=== PATIENT | male | born 1965 | race Caucasian/White ===

== ENCOUNTER 2024-01-14 17:37 | Day surgery (SDC) | payer OTHER ==
[2024-01-14] MEDS: LACTATED RINGERS 1,000 ML IV ONE ×2 (00:11→00:43)
[2024-01-14 18:15] LABS: BASOPHILS # (AUTO) 0.1 10^3/uL (0.0-0.1); BASOPHILS % (AUTO) 0.4 %; EOSINOPHILS % (AUTO) 0.3 %; HGB - HEMOGLOBIN 14.7 g/dL (14.0-18.0); LYMPHOCYTES # (AUTO) 1.5 10^3/uL (1.5-3.5); LYMPHOCYTES % (AUTO) 11.5 %; MEAN CORPUSCULAR VOLUME 85.7 fL (80.0-94.0); MEAN PLATELET VOLUME 10.3 fL (7.4-11.4); MONOCYTES # (AUTO) 0.6 10^3/uL (0.0-1.0); MONOCYTES % (AUTO) 4.8 %; NEUTROPHILS # (AUTO) 11.1 10^3/uL (1.5-6.6); NEUTROPHILS % (AUTO) 82.6 %; PLT - PLATELET COUNT 262 10^3/uL (130-450); RED CELL DISTRIBUTION WIDTH 11.5 % (12.0-15.0); WHITE BLOOD COUNT 13.4 x10^3/uL (4.8-10.8)
[2024-01-14 18:43] LABS: ALBUMIN 4.4 g/dL (3.2-5.5); ALBUMIN/GLOBULIN RATIO 1.5 (1.0-2.2); ALKALINE PHOSPHATASE 51 IU/L (42-121); ALT ALANINE AMINOTRANSFERASE 11 IU/L (10-60); AST ASPARTATE AMINOTRANSFERASE 9 IU/L (10-42); BILIRUBIN,TOTAL 0.8 mg/dL (0.2-1.0); BUN - BLOOD UREA NITROGEN 9 mg/dL (6-20); CALCIUM 9.6 mg/dL (8.5-10.3); CARBON DIOXIDE - CO2 24 mmol/L (21-32); CHLORIDE 104 mmol/L (101-111); CREATININE 0.7 mg/dL (0.6-1.3); GFR - MDRD 117 (>89); GLUCOSE 118 mg/dL (74-104); POTASSIUM 3.4 mmol/L (3.5-4.5); SODIUM 137 mmol/L (135-145); TOTAL PROTEIN 7.4 g/dL (6.4-8.9)
[2024-01-14 18:47] LABS: LIPASE < 10 U/L (11-82)
[2024-01-14] MEDS ORDERED: iohexoL-300 100 ML VIAL ONE (20:11)
[2024-01-14 20:29] LABS: BILIRUBIN,URINE NEGATIVE (NEGATIVE); GLUCOSE, URINE (UA) NEGATIVE (NEGATIVE); KETONES,URINE (UA) NEGATIVE (NEGATIVE); LEUKOCYTE ESTERASE, URINE NEGATIVE (NEGATIVE); NITRITE,URINE NEGATIVE (NEGATIVE); OCCULT BLOOD,URINE TRACE-LYSE (NEGATIVE); PH,URINE 6.5 PH (5.0-7.5); PROTEIN,URINE NEGATIVE (NEGATIVE); UROBILINOGEN,URINE 0.2 (NORMAL) E.U./dL (NORMAL)
--- NOTE | 2024-01-14 20:29 | ED Physician Documentation ---
PD HPI ABD PAIN - Stated complaint Stated Complaint: ABD PX - Chief complaint Chief Complaint: Abd Pain - History obtained from History obtained from: Patient - History of Present Illness Pain level max: 7 Pain level now: 5 Quality: Aching, Pain Location: RLQ Radiation: No: Chest, , Lower back, Left flank, Left shoulder, Right flank, Right shoulder, Upper back Improved by: Laying still Worsened by: Moving, Palpation Associated symptoms: Fever (101). No: Hematemesis, Diarrhea, Constipation, Melena, Hematochezia, Dysuria - Additional information Additional information: Patient is a 58-year-old male who presents to the emergency department complaint of right lower quadrant abdominal pain that started yesterday and has continued today. Worse with movement, better with rest. Some nausea. No diarrhea or constipation. Had temp of 101 at home. Patient states that he has pain with walking and pain with going over bumps in cars. Has not eaten anything for 2 days. Review of Systems Constitutional: denies: Fever, Chills Throat: denies: Sore throat Cardiac: denies: Chest pain / pressure Respiratory: denies: Cough Skin: denies: Rash Musculoskeletal: denies: Neck pain, Back pain Neurologic: denies: Headache PD PAST MEDICAL HISTORY - Past Medical History Past Medical History: No - Past Surgical History Past Surgical History: Yes HEENT: Other - Present Medications Home Medications: Ambulatory Orders Medication Instructions Recorded Confirmed No Known Home Medications 01/14/24 01/14/24 - Allergies Allergies/Adverse Reactions: Allergies Allergy/AdvReac Type Severity Reaction Status Date / Time No Known Drug Allergies Allergy Verified 01/14/24 17:46 - Social History Does the pt smoke?: No Smoking Status: Never smoker Does the pt drink ETOH?: Yes Does the pt have substance abuse?: No PD ED PE NORMAL - Vitals Vital signs reviewed: Yes - General General: Alert and oriented X 3, No acute distress - HEENT HEENT: PERRL, Moist mucous membranes - Neck Neck: Supple, no meningeal sign - Cardiac Cardiac: RRR, Strong equal pulses - Respiratory Respiratory: No respiratory distress, Clear bilaterally - Abdomen Abdomen: Soft, Non distended, Other (TTP RLQ @ [place]. +heeltap. neg psoas and obturator.) - Back Back: No CVA TTP, No spinal TTP - Derm Derm: Warm and dry - Extremities Extremities: No edema - Neuro Neuro: Alert and oriented X 3 - Psych Psych: Normal mood, Normal affect Results - Vitals Vitals: Vital Signs - 24 hr 01/14/24 01/14/24 01/14/24 17:41 20:12 22:00 Temperature 36.0 C L Heart Rate 99 76 75 Respiratory 15 16 16 Rate Blood Pressure 125/76 129/84 H 127/78 O2 Saturation 97 95 96 Oxygen O2 Source Room air - Labs Labs: Laboratory Tests 01/14/24 01/14/24 01/14/24 17:55 17:55 18:08 WBC 13.4 H RBC 4.90 Hgb 14.7 Hct 42.0 MCV 85.7 MCH 30.0 MCHC 35.0 RDW 11.5 L Plt Count 262 MPV 10.3 Neut # (Auto) 11.1 H Lymph # (Auto) 1.5 [place] # (Auto) 0.6 Eos # (Auto) 0.0 Baso # (Auto) 0.1 Absolute Nucleated RBC 0.00 Nucleated RBC % 0.0 Sodium 137 Potassium 3.4 L Chloride 104 Carbon Dioxide 24 Anion Gap 9.0 BUN 9 Creatinine 0.7 Estimated GFR (MDRD) 117 Glucose 118 H Calcium 9.6 Total Bilirubin 0.8 AST 9 L ALT 11 Alkaline Phosphatase 51 Total Protein 7.4 Albumin 4.4 Globulin 3.0 Albumin/Globulin Ratio 1.5 Lipase < 10 L Urine Color DARK YELLOW Urine Clarity CLEAR Urine pH 6.5 Ur Specific [place] <=1.005 Urine Protein NEGATIVE Urine Glucose (UA) NEGATIVE Urine Ketones NEGATIVE Urine Occult Blood TRACE-LYSE Urine Nitrite NEGATIVE Urine Bilirubin NEGATIVE Urine Urobilinogen 0.2 (NORMAL) Ur Leukocyte Esterase NEGATIVE Ur Microscopic Review NOT INDICATED Urine Culture Comments NOT INDICATED - Rads (name of study) CT abd/pelvis Relevant Findings:: Final report received, See rad report PD Medical Decision Making - ED course Complexity details: reviewed results, re-evaluated patient, considered differential, d/w patient, d/w distributor sales consultant ED course: 58-year-old male with appendicitis clinically on exam and history, confirmed with CT scan. No perforation or abscess. Discussed the case with Dr. Cantu, general surgery on-call who will take him to the OR. Patient declines any pain medications in the emergency department. Given IV Zosyn. This document was made in part using voice recognition software. While efforts are made to proofread this document, sound alike and grammatical errors may occur. Departure - Departure Disposition: ED Transfer to [facility] Clinical Impression: Appendicitis Qualifiers: Appendicitis type: acute appendicitis Acute appendicitis type: with localized peritonitis Appendicitis gangrene presence: without gangrene Appendicitis perforation presence: without perforation Appendicitis abscess presence: without abscess Qualified Code(s): K35.30 - Acute appendicitis with localized peritonitis, without perforation or gangrene Condition: Stable Discharge Date/Time: 01/14/24 22:40
[2024-01-14 20:35] LABS: CLARITY,URINE CLEAR (CLEAR)
[2024-01-14] MEDS: iohexoL-300 100 ML VIAL IVP ONE (20:40)
[2024-01-14] MEDS: SODIUM CHLORIDE 0.9% 1,000 ML IV STA (21:20)
[2024-01-14] MEDS: PIPERACILLIN/TAZOBACTAM 3.375 GM in SODIUM CHLORIDE 0.9% MINIBAG 100 ML IV STA (21:21)
--- NOTE | 2024-01-14 21:32 | CT Report ---
PROCEDURE: Abdomen/Pelvis W INDICATIONS: RLQ abd pain CONTRAST: 100 ML OMNI 300 TECHNIQUE: After the administration of intravenous contrast, a CT scan of the abdomen and pelvis was performed. Images were recorded and evaluated at appropriate window settings. Reformats: coronal and sagittal. F or radiation dose reduction, the following was used: automated exposure control, adjustment of mA and /or kV according to patient size. COMPARISON: None. FINDINGS: Image quality: Diagnostic. Lower chest: Unremarkable. Liver: Scattered subcentimeter low-attenuation foci, with the larger lesions most suggestive of simpl e cysts. The smaller lesions are too small to definitively characterize. Gallbladder and biliary tree: Unremarkable. Spleen: No splenomegaly. Pancreas: No pancreatic ductal dilation. Adrenals: No adrenal nodule. Kidneys and ureters: No hydronephrosis. No renal cystic lesion which requires follow up. No solid mas s. Stomach, bowel and peritoneum: The appendix is markedly enlarged measuring 1.4 cm. 2 mm appendicolith is present. No perforation. No abscess. Lymph nodes: No central or retroperitoneal adenopathy. Vessels: No infrarenal aortic aneurysm. PELVIS Reproductive organs: Unremarkable. Bladder: No abnormal wall thickening, accounting for underdistention. Pelvic lymph nodes: No pelvic adenopathy by size criteria. Bones: No aggressive osseous abnormality. Other: No significant ventral or inguinal hernia. IMPRESSION: Prominently inflamed appendix with appendicolith. No evidence of perforation or abscess. The above findings were discussed with Dr. Ken Santiago on 01/14/2024 at 9:29 PM Reviewed by: Mercedez Enriquez MD on 01/14/2024 9:31 PM PDT Approved by: Mercedez Enriquez MD on 01/14/2024 9:31 PM PDT Station ID: [id number]
[2024-01-14] MEDS ORDERED: MIDAZOLAM 2 MG/2 ML VIAL ONE (21:35)
--- NOTE | 2024-01-14 21:35 | ANESTHESIA ---
Pre-Anesthesia VS, & Labs - Diagnosis Acute appendicitis - Procedure Laparoscopic appendectomy Vital Signs: Temp Pulse Resp BP Pulse Ox O2 Flow Rate 36.0 C L 76 16 129/84 H 95 01/14/24 17:41 01/14/24 20:12 01/14/24 20:12 01/14/24 20:12 01/14/24 20:12 Height: 6 ft 1 in Weight (kg): 102.058 kg Body Mass Index: 29.7 BMI Classification: Overweight - NPO >8 hours - Lab Results Current Lab Results: Laboratory Tests 01/14/24 17:55: Sodium 137, Potassium 3.4 L, Chloride 104, Carbon Dioxide 24, Anion Gap 9.0, BUN 9, Creatinine 0.7, Estimated GFR (MDRD) 117, Glucose 118 H, Calcium 9.6, Total Bilirubin 0.8, AST 9 L, ALT 11, Alkaline Phosphatase 51, Total Protein 7.4, Albumin 4.4, Globulin 3.0, Albumin/Globulin Ratio 1.5, Lipase < 10 L 01/14/24 17:55: WBC 13.4 H, RBC 4.90, Hgb 14.7, Hct 42.0, MCV 85.7, MCH 30.0, MCHC 35.0, RDW 11.5 L, Plt Count 262, MPV 10.3, Neut # (Auto) 11.1 H, Lymph # (Auto) 1.5, [place] # (Auto) 0.6, Eos # (Auto) 0.0, Baso # (Auto) 0.1, Absolute Nucleated RBC 0.00, Nucleated RBC % 0.0 Fish Bones: 01/14/24 17:55 01/14/24 17:55 Home Medications and Allergies Home Medications: Ambulatory Orders No Known Home Medications 01/14/24 Active Medications Sodium Chloride (Normal Saline 0.9%) 1,000 mls @ 150 mls/hr IV .Q6H40M STA Stop: 01/15/24 03:34 No Known Home Medications 01/14/24 Allergies/Adverse Reactions: Allergies Allergy/AdvReac Type Severity Reaction Status Date / Time No Known Drug Allergies Allergy Verified 01/14/24 17:46 Anes History & Medical History - Medical History Smoking Status: Never smoker - Surgical History Eyes Ears Nose Throat (EENT): reports: Other Exam General: Alert, Oriented x3, Cooperative Dental: WNL Mouth Opening: Greater than 4 Fingerbreadths Neck Mobility: Normal Mallampati classification: II Thyromental Distance: 4-6 cm Respiratory: Lungs clear, Normal breath sounds, No respiratory distress Cardiovascular: Regular rate Abdomen: Other (RLQ pain with movement) Neurological: Normal speech Mental/Cognitive Status: Alert/Oriented X3, Normal for patient Cognitive Status: Within normal limits Plan Anesthesia Type: General Consent for Procedure(s) Verified and Reviewed: Yes Code Status: Attempt Resuscitation ASA classification: 1-Healthy patient Is this case an emergency?: Yes
[2024-01-14] MEDS ORDERED: fentaNYL 100 MCG/2 ML VIAL ONE (21:36)
[2024-01-14] MEDS ORDERED: PROPOFOL 200 MG/20 ML VIAL IVP ONE (21:36)
[2024-01-14] MEDS ORDERED: LIDOCAINE-PF 2% 10 ML AMP SUBQ ONE (21:36)
[2024-01-14] MEDS ORDERED: ROCURONIUM 50 MG/5 ML VIAL ONE ×2 (21:37→23:11)
[2024-01-14] MEDS ORDERED: ePHEDrine 50 MG/ML VIAL IVP PRN ×2 (22:05→23:00)
[2024-01-14] MEDS ORDERED: fentaNYL 100 MCG/2 ML VIAL IVP PRN ×2 (22:05→23:00)
[2024-01-14] MEDS ORDERED: ONDANSETRON 4 MG/2 ML VIAL IVP PRN ×2 (22:05→23:00)
[2024-01-14] MEDS ORDERED: ATROPINE ABBOJECT 1 MG/10 ML SYRINGE IVP PRN ×2 (22:05→23:00)
[2024-01-14] MEDS ORDERED: HYDROmorphone 0.5 MG/0.5 ML SYRINGE IVP PRN ×2 (22:05→23:00)
[2024-01-14] MEDS ORDERED: METOCLOPRAMIDE 10 MG/2 ML VIAL IVP PRN ×2 (22:05→23:00)
[2024-01-14] MEDS ORDERED: MORPHINE 2 MG/ML CARPUJECT IVP PRN ×2 (22:05→23:00)
[2024-01-14] MEDS ORDERED: NALOXONE 0.4 MG/ML VIAL IVP PRN ×2 (22:05→23:00)
[2024-01-14] MEDS ORDERED: LIDOCAINE 1%-EPI 1:100000 20 ML MDV ONE ×2 (22:11)
[2024-01-14] MEDS ORDERED: BUPIVACAINE 0.25% PF 30 ML VIAL ONE (22:11)
--- NOTE | 2024-01-14 22:21 | HISTORY & PHYSICAL EXAMINATION ---
HPI - History Obtained From History obtained from: Patient Exam limitations: No limitations - History of Present Illness HPI Comment/Other: 58yoM with 36hrs progressive RLQ pain. Initially felt constipated - took laxative and had resultant watery nonbloody stools. Initially had nausea and emesis x2 yesterday, no emesis today. No prior history of similar. Subjective fever at home yesterday. PMH/PSH - Past Surgical History HEENT: positive: Other (deviated septum) Social & Family Hx - Living Situation Living Arrangement: At home Living Situation: With spouse/s.o. - Social History Does the pt smoke?: No Smoking Status: Never smoker Does the pt drink ETOH?: Yes Does the pt have substance abuse?: No Meds/Allgy - Home Medications Home Medications: Ambulatory Orders Medication Instructions Recorded Confirmed No Known Home Medications 01/14/24 01/14/24 - Allergies Allergies/Adverse Reactions: Allergies Allergy/AdvReac Type Severity Reaction Status Date / Time No Known Drug Allergies Allergy Verified 01/14/24 17:46 Review of Systems - Constitutional Constitutional: reports: Fever - Gastrointestinal Gastrointestinal: reports: Abdominal pain, Diarrhea, Nausea, Vomiting. denies: Bloody stools - Genitourinary Genitourinary: denies: Dysuria Exam - Vital Signs Reviewed Vital Signs: Yes Vital Signs: Vital Signs x48h Temp Pulse Resp BP Pulse Ox 01/14/24 22:00 75 16 127/78 96 01/14/24 20:12 76 16 129/84 H 95 01/14/24 17:41 36.0 C L 99 15 125/76 97 - Physical Exam General Appearance: positive: No acute distress, Alert Eyes Bilateral: positive: Normal inspection, PERRL ENT: positive: ENT inspection nml, Pharynx nml, No signs of dehydration Neck: positive: Nml inspection, Thyroid nml, No JVD, Trachea midline Respiratory: positive: Chest non-tender, No respiratory distress, Breath sounds nml Cardiovascular: positive: Regular rate & rhythm, No murmur, No gallop Peripheral Pulses: positive: 2+ Abdomen: positive: No distention, Tenderness (RLQ, no rosvings). negative: Guarding, Rebound Back: positive: Nml inspection Skin: positive: Color nml, No rash, Warm, Dry Extremities: positive: Non-tender, Full ROM, Nml appearance Neurologic/Psychiatric: positive: Oriented x3, Mood/affect nml Results - Lab Results Lab results reviewed: Yes Fish Bones: 01/14/24 17:55 01/14/24 17:55 Other Lab Results: Lab Results x24hrs 01/14/24 01/14/24 01/14/24 Range/Units 18:08 17:55 17:55 WBC 13.4 H (4.8-10.8) x10^3/uL RBC 4.90 (4.70-6.10) 10^6/uL Hgb 14.7 (14.0-18.0) g/dL Hct 42.0 (42.0-52.0) % MCV 85.7 (80.0-94.0) fL MCH 30.0 (27.0-31.0) pg MCHC 35.0 (32.0-36.0) g/dL RDW 11.5 L (12.0-15.0) % Plt Count 262 (130-450) 10^3/uL MPV 10.3 (7.4-11.4) fL Neut # (Auto) 11.1 H (1.5-6.6) 10^3/uL Lymph # (Auto) 1.5 (1.5-3.5) 10^3/uL [place] # (Auto) 0.6 (0.0-1.0) 10^3/uL Eos # (Auto) 0.0 (0.0-0.7) 10^3/uL Baso # (Auto) 0.1 (0.0-0.1) 10^3/uL Absolute Nucleated RBC 0.00 x10^3/uL Nucleated RBC % 0.0 /100WBC Sodium 137 (135-145) mmol/L Potassium 3.4 L (3.5-4.5) mmol/L Chloride 104 (101-111) mmol/L Carbon Dioxide 24 (21-32) mmol/L Anion Gap 9.0 (6-13) BUN 9 (6-20) mg/dL Creatinine 0.7 (0.6-1.3) mg/dL Estimated GFR (MDRD) 117 (>89) Glucose 118 H (74-104) mg/dL Calcium 9.6 (8.5-10.3) mg/dL Total Bilirubin 0.8 (0.2-1.0) mg/dL AST 9 L (10-42) IU/L ALT 11 (10-60) IU/L Alkaline Phosphatase 51 (42-121) IU/L Total Protein 7.4 (6.4-8.9) g/dL Albumin 4.4 (3.2-5.5) g/dL Globulin 3.0 (2.1-4.2) g/dL Albumin/Globulin Ratio 1.5 (1.0-2.2) Lipase < 10 L (11-82) U/L Urine Color DARK YELLOW Urine Clarity CLEAR (CLEAR) Urine pH 6.5 (5.0-7.5) PH Ur Specific [place] <=1.005 (1.002-1.030) Urine Protein NEGATIVE (NEGATIVE) mg/dL Urine Glucose (UA) NEGATIVE (NEGATIVE) mg/dL Urine Ketones NEGATIVE (NEGATIVE) mg/dL Urine Occult Blood TRACE-LYSE (NEGATIVE) Urine Nitrite NEGATIVE (NEGATIVE) Urine Bilirubin NEGATIVE (NEGATIVE) Urine Urobilinogen 0.2 (NORMAL) (NORMAL) E.U./dL Ur Leukocyte Esterase NEGATIVE (NEGATIVE) Ur Microscopic Review NOT INDICATED Urine Culture Comments NOT INDICATED - Diagnostic Imaging Results Diagnostic Imaging Results: positive: Final report reviewed, Read contemporaneously Diagnostic Imaging Results Comments: CT abd/pel with 1.4cm appendix with 2mm appendicolith and prominent surrounding inflammation. Some fluid in pelvis. Acute appendicitis. Impression/Plan - Problem List Problem List: 58yoM with acute appendicitis. No comorbidities. 36hrs pain, n/v, HD normal/afebrile (subjective fevers). Focal RLQ ttp, WBC 13, CT with 1.4cm appendix/2mm appendicolith, and prominent periappendiceal inflammation. Discussed nature of diagnosis, management options to include surgery vs antib iotics as well as the significant risk of recurrence in setting of appendicolith and antibiotics alone. Discussed surgery and risks to include pain, bleeding, infection, bowel resection, open surgery, drain placement, postop abscess, need for further procedures. All questions answered and he agrees to proceed with surgery. present for discussion. Anuja Cantu DO, FACS General Surgeon.
[2024-01-14] MEDS ORDERED: ONDANSETRON 4 MG/2 ML VIAL ONE (22:38)
[2024-01-14] MEDS ORDERED: DEXAMETHASONE 4 MG/ML VIAL ONE (22:38)
[2024-01-14] MEDS: BUPIVACAINE 0.25% PF 30 ML VIAL SUBQ ONE (22:49)
[2024-01-14] MEDS: LIDOCAINE 1%-EPI 1:100000 20 ML MDV SUBQ ONE (22:49)
[2024-01-14] MEDS ORDERED: ACETAMINOPHEN 1,000 MG/100 ML 1,000 MG/100 ML BAG IV ONE (22:49)
[2024-01-14] MEDS ORDERED: GLYCOPYRROLATE 1 MG/5 ML VIAL ONE (22:51)
[2024-01-14] MEDS ORDERED: LACTATED RINGERS 1,000 ML IV SCH (23:00)
[2024-01-14] MEDS ORDERED: SUGAMMADEX 200 MG/2 ML VIAL IVP ONE (23:12)
[2024-01-14] MEDS ORDERED: KETOROLAC 30 MG/ML VIAL ONE (23:43)
--- NOTE | 2024-01-15 00:13 | OPERATIVE REPORT ---
Operative Report - General Procedure Date: 01/14/24 Planned Procedure: laparoscopic appendectomy Pre-Op Diagnosis: acute appendicitis Procedure Performed: laparoscopic appendectomy Post Op Diagnosis: acute gangrenous appendicitis - Procedure Note Primary Surgeon: Anuja Cantu Do Anesthesia Provider: Sky Bowen CRNA Anesthesia Technique: General ET tube Pathology: appendix Estimated Blood Loss (mL): 5 Urine Output (mL): 0 (NR) Indications: 59M with acute appendicitis, pain x24 hrs, WBC 13, CT showing 1.4cm appendix, significant inflammation, and 2mm fecalith Findings: gangrenous appendix, densely walled off by surrounding structures, purulent fluid in pelvis Complications: none - Other Other Information/Narrative: The patient was brought to the operating room with universal protocol observed throughout. He was placed supine on the operating room table with the left arm tucked. NO Baez was placed. General anesthesia with endotracheal tube was induced by the anesthesia service. A timeout was performed with all members of the team being in agreement. Local anesthetic of 1% lidocaine with epinephrine mixed with Marcaine plain was injected into the supraumbilical skin. a transverse skin incision was made sharply. Blunt dissection down to the level of the fascia was performed. the umbilical stalk was elevated and the fascia was incised sharply in a vertical orientation and the peritoneal cavity was entered bluntly with a Silvia clamp. A 12 mm balloon trocar was placed. The abdomen was insufflated with CO2 gas to a pressure of 15 mmHg which the patient tolerated well. The laparoscope was inserted and visual inspection revealed no evidence of injury upon entry. Two additional 5mm trocars were placed in the left lower quadrant and suprapubic positions under direct visualization. Graspers were introduced into the abdomen. The appendix was seen to gangrenous and walled off. There was purulent fluid in the pelvis. The appendix was elevated, the mesoappendix was divided with awhite load stapler, and the base of the appendix was divided with a 30 mm blue load staple line. The appendix was placed into an Endo Catch bag and extracted through the umbilical port. The staple line was inspected and noted to be intact and hemostatic. Purulent fluid was suctioned from the pelvis. The trocars were removed under direct visualization. The umbilical fascia was closed with an 0 Vicryl [id number] suture. The umbilical wound was irrigated with clean normal saline. Hemostasis in the wound was achieved with Bovie electrocautery and all skin incisions were closed with subcuticular 4-0 Monocryl suture. A dressing of Steri-Strips gauze and Tegaderm was applied. The patient was extubated and awoken from general anesthesia. All sponge needle counts were correct. The patient was transferred to the PACU in stable condition. Anuja Cantu DO, FACS General Surgeon
[2024-01-15] MEDS ORDERED: oxyCODONE 5 MG TABLET PO PRN (00:15)
[2024-01-15] MEDS ORDERED: ONDANSETRON 4 MG/2 ML VIAL IVP PRN (00:15)
--- NOTE | 2024-01-15 00:23 | ANESTHESIA POST OP EVALUATION ---
Anesthesia Post Eval - Post Anesthesia Eval Vitals: Last Vital Signs Temp 37.2 C 01/15/24 00:11 Pulse 87 01/15/24 00:20 Resp 12 01/15/24 00:20 BP 145/71 H 01/15/24 00:20 Pulse Ox 96 01/15/24 00:20 O2 Flow Rate CV Function Including HR & BP: Stable Pain Control: Satisfactory Nausea & Vomiting: Negative Mental Status: Baseline Respiratory Status: Airway Patent Hydration Status: Satisfactory Anesthesia Complications: None
[2024-01-15] MEDS: LACTATED RINGERS 1,000 ML IV SCH ×2 (01:00→05:37)
[2024-01-15] MEDS: ACETAMINOPHEN 500 MG TABLET PO SCH (05:33)
[2024-01-15] MEDS: SODIUM CHLORIDE 0.9% 1,000 ML IV STA (05:37)
[2024-01-15 08:51] VITALS: BP 106/61; O2SAT 94
--- NOTE | 2024-01-15 09:51 | DISCHARGE SUMMARY ---
"Discharge Summary Admit Date: 01/14/24 Discharge Date: 01/15/24 Discharging Provider: Anuja Cantu DO Code Status: Attempt Resuscitation Condition at Discharge: Stable Discharge Disposition: 01 Home, Self Care - DIAGNOSES Admission Diagnoses: acute appendicitis Discharge Diagnoses with Status of Each Condition: acute gangrenous appendicitis - resolved - CONSULTS | PROCEDURES Procedures: laparoscopic appendectomy - HOSPITAL COURSE Hospital Course: The patient was admitted with acute appendicitis and taken to the operating room for an uncomplicated laparoscopic appendectomy in which he was found to have acute gangrenous appendicitis. He was observed overnight and meeting all discharge criteria on the morning of POD1. He was ambulating and voiding at baseline, tolerating PO intake, and pain was controlled on PO medication. He was discharged to home in good condition. - ALLERGIES Allergies/Adverse Reactions: Allergies Allergy/AdvReac Type Severity Reaction Status Date / Time No Known Drug Allergies Allergy Verified 01/14/24 17:46 - MEDICATIONS Home Medications: Ambulatory Orders Medication Instructions Recorded Confirmed Acetaminophen [Acetaminophen Extra 1,000 mg PO Q8HR PRN #30 tablet 01/15/24 Strength] Ibuprofen [Motrin] 1 tablet PO Q8H PRN #30 tablet 01/15/24 oxyCODONE [Roxicodone] 5 mg PO Q4-6H PRN 7 Days #5 tablet 01/15/24 - PHYSICAL EXAM AT DISCHARGE General Appearance: positive: No acute distress, Alert Eyes Bilateral: positive: Normal inspection ENT: positive: ENT inspection nml Neck: positive: Nml inspection Respiratory: positive: Chest non-tender, No respiratory distress, Breath sounds nml Cardiovascular: positive: Regular rate & rhythm Abdomen: positive: No distention, Tenderness (apprpropriate sadie-incisional ttp) Extremities: positive: Non-tender, Full ROM Neurologic/Psychiatric: positive: Oriented x3 - LABS Result Diagrams: 01/14/24 17:55 01/14/24 17:55 - FOLLOW UP Follow Up: 2 wks general surgery clinic - TIME SPENT Time Spent in Discharge (Minutes): 30"
[2024-01-15] MEDS: IBUPROFEN 800 MG TABLET PO PRN (10:06)
== END 2024-01-15 10:30 | disposition home or self-care (01) ==
LOC: ED 17:37 → SDS 22:02 → MS2 01-15 00:49 → SDS 01-15 10:30
PROVIDERS: ATTEND Surgery
PROC: 0DTJ4ZZ Resection of Appendix, Percutaneous Endoscopic Approach (ICD-10-PCS; principal; 2024-01-14 22:30)
DX: K35.31 Acute appendicitis with localized peritonitis and gangrene, without perforation (principal)
CPT/HCPCS: 36415; 44970; 74177; 80053; 81003; 83690; 85025; 96365; 99285; A9270; J0131; J7120; Q9967; 81001; 87086